=== PATIENT | female | born 1950 | race Caucasian/White ===

== ENCOUNTER 2017-05-21 14:03 | Emergency (ER) | payer MEDICARE, OTHER ==
--- NOTE | 2017-05-21 14:15 | EDM.PDOC ---
ED HPI GENERAL MEDICAL PROBLEM - General Chief Complaint: Diabetic Complaint Stated Complaint: SHAKY Time Seen by Provider: 05/21/17 14:04 Source of Information: Reports: Patient History Limitations: Reports: No Limitations - History of Present Illness INITIAL COMMENTS - FREE TEXT/NARRATIVE: History of present illness: []Patient started feeling right flank pain last night followed by lower pelvic pain urination that radiated to her right flank. She then noted her urine was pink. She denies any pain with urination, fevers, nausea, vomiting or diarrhea. Patient did receive some bad news earlier today regarding her brother who has multiple myeloma who is failing dialysis. Following that she had an episode of shaking and anxiety and did not feel well. Eyes any chest pain or shortness of breath. She is diabetic and her glucose shot to 200 or normal she is in the 120s. Review of systems: As per history of present illness and below otherwise all systems reviewed and negative. Past medical history: As per history of present illness and as reviewed below otherwise noncontributory. Surgical history: As per history of present illness and as reviewed below otherwise noncontributory. Social history: No reported history of drug or alcohol abuse. Family history: As per history of present illness and as reviewed below otherwise noncontributory. Physical exam: General: Well developed, well nourished in NAD HEENT: Atraumatic, normocephalic, pupils reactive, negative for conjunctival pallor or scleral icterus, mucous membranes moist, throat clear, neck supple, nontender, trachea midline. Lungs: Clear to auscultation, breath sounds equal bilaterally, chest nontender. Heart: S1S2, regular, negative for clicks, rubs, or JVD. Abdomen: Soft, nondistended, nontender. Negative for masses or hepatosplenomegaly. Right costovertebral tenderness. Pelvis: Stable nontender. Genitourinary: Deferred. Rectal: Deferred. Extremities: Atraumatic, negative for cords or calf pain. Neurovascular unremarkable. Neuro: Awake, alert, oriented. Cranial nerves II through XII unremarkable. Cerebellum unremarkable. Motor and sensory unremarkable throughout. Exam nonfocal. Diagnostics: []CBC normal white count with a shift, chemistries show BUN/creatinine are 20/ 1.2, urine shows small blood and CT abdomen and pelvis show 4.5 mm obstructing right ureteral stone at the UPJ. Therapeutics: []IV fluids and Flomax given Impression: []Ureterolithiasis with right 4.5 mm obstructing stone Plan: []Dr. Hardy was consulted and will see this patient in clinic tomorrow at 1:30 in his office. Patient is being discharged with tramadol and Flomax. He is told to return if symptoms worsen or change. Definitive disposition and diagnosis as appropriate pending reevaluation and review of above. Right Lower Back Pain Score (Numeric/FACES): 4 - Related Data Allergies Allergy/AdvReac Type Severity Reaction Status Date / Time prednisone Allergy Pain Verified 05/21/17 14:20 Home Meds: Home Meds Escitalopram [Lexapro] 10 mg PO DAILY 05/21/17 [History] Levothyroxine [Sythroid] 100 mcg PO DAILY 05/21/17 [History] Omeprazole Magnesium [Prilosec Otc] 20 mg PO DAILY 05/21/17 [History] Tamsulosin HCl [Flomax] 0.4 mg PO DAILY #14 cap.er.24h 05/21/17 [Rx] Valsartan/Hydrochlorothiazide [Valsartan-Hctz 80-12.5 mg Tab] 1 each PO DAILY [History] atorvaSTATin [Lipitor] 10 mg PO DAILY 05/21/17 [History] metFORMIN HCl [Metformin HCl] 500 mg PO BID 05/21/17 [History] traMADol HCl [Tramadol HCl] 50 mg PO Q6H PRN #16 tablet 05/21/17 [Rx] ED ROS GENERAL - Review of Systems Review Of Systems: See Below (See history of present illness) ED EXAM GENERAL NO PERIP PULSE - Physical Exam Exam: See Below (See history of present illness) Course - Vital Signs Last Recorded V/S: Last Vital Signs Temp 99.1 F 05/21/17 16:14 Pulse 110 H 05/21/17 14:10 Resp 16 05/21/17 14:10 BP 139/70 05/21/17 14:10 Pulse Ox 97 05/21/17 14:10 - Orders/Labs/Meds Orders: Active Orders 24 hr Category Date Time Status CULTURE BLOOD [BC] Stat Lab 05/21/17 14:50 Received CULTURE BLOOD [BC] Stat Lab 05/21/17 15:05 Received CULTURE URINE [RM] Stat Lab 05/21/17 14:40 Received Sodium Chloride 0.9% [Normal Saline] 500 ml Med 05/21/17 15:15 Active IV .BOLUS Sodium Chloride 0.9% [Saline Flush] Med 05/21/17 14:40 Active 10 ml FLUSH ASDIRECTED PRN Sodium Chloride 0.9% [Saline Flush] Med 05/21/17 14:40 Active 2.5 ml FLUSH ASDIRECTED PRN Blood Culture x2 Reflex Set [OM.PC] Stat Oth 05/21/17 14:40 Ordered Saline Lock Insert [OM.PC] Stat Oth 05/21/17 14:40 Ordered Medication Orders Sodium Chloride (Normal Saline) 500 mls @ 999 mls/hr IV .BOLUS GILBERT Last Admin: 05/21/17 15:14 Dose: 999 mls/hr Sodium Chloride (Saline Flush) 10 ml FLUSH ASDIRECTED PRN PRN Reason: Keep Vein Open Sodium Chloride (Saline Flush) 2.5 ml FLUSH ASDIRECTED PRN PRN Reason: Keep Vein Open Labs: Laboratory Tests 05/21/17 05/21/17 05/21/17 Range/Units 14:43 14:50 14:50 WBC 3.37 L (4.0-11.0) K/uL RBC 4.41 (4.30-5.90) M/uL Hgb 13.5 (12.0-16.0) g/dL Hct 40.2 (36.0-46.0) % MCV 91.2 (80.0-98.0) fL MCH 30.6 (27.0-32.0) pg MCHC 33.6 (31.0-37.0) g/dL RDW Std Deviation 46.6 (28.0-62.0) fl RDW Coeff of Mya 14 (11.0-15.0) % Plt Count 190 (150-400) K/uL MPV 10.30 (7.40-12.00) fL Neut % (Auto) 88.7 H (48.0-80.0) % Lymph % (Auto) 9.5 L (16.0-40.0) % Bowie % (Auto) 0.3 (0.0-15.0) % Eos % (Auto) 1.2 (0.0-7.0) % Baso % (Auto) 0.3 (0.0-1.5) % Neut # (Auto) 3.0 (1.4-5.7) K/uL Lymph # (Auto) 0.3 L (0.6-2.4) K/uL Bowie # (Auto) 0.0 (0.0-0.8) K/uL Eos # (Auto) 0.0 (0.0-0.7) K/uL Baso # (Auto) 0.0 (0.0-0.1) K/uL Nucleated RBC % 0.0 /100WBC Nucleated RBCs # 0 K/uL Lactate (0.20-2.00) mmol/L Sodium 139 (136-145) mmol/L Potassium 3.4 L (3.5-5.1) mmol/L Chloride 102 (98-107) mmol/L Carbon Dioxide 23.7 (21.0-32.0) mmol/L BUN 20 H (7.0-18.0) mg/dL Creatinine 1.2 H (0.6-1.0) mg/dL Est Cr Clr Drug Dosing 43.75 mL/min Estimated GFR (MDRD) 45.1 ml/min Glucose 117 H (74-106) mg/dL Calcium 9.4 (8.5-10.1) mg/dL Total Bilirubin 1.1 H (0.2-1.0) mg/dL AST 22 (15-37) U/L ALT 26 (14-63) U/L Alkaline Phosphatase 102 (46-116) U/L Total Protein 7.7 (6.4-8.2) g/dL Albumin 4.5 (3.4-5.0) g/dL Globulin 3.2 (2.0-3.5) g/dL Albumin/Globulin Ratio 1.4 (1.3-2.8) Urine Color YELLOW Urine Appearance CLEAR Urine pH 5.5 (5.0-8.0) Ur Specific [place] 1.025 (1.001-1.035) Urine Protein NEGATIVE (NEGATIVE) mg/dL Urine Glucose (UA) NEGATIVE (NEGATIVE) mg/dL Urine Ketones TRACE H (NEGATIVE) mg/dL Urine Occult Blood TRACE-INTACT (NEGATIVE) Urine Nitrite NEGATIVE (NEGATIVE) Urine Bilirubin NEGATIVE (NEGATIVE) Urine Urobilinogen 0.2 (<2.0) EU/dL Ur Leukocyte Esterase TRACE (NEGATIVE) Urine RBC 0-1 (0-2/HPF) Urine WBC 2-5 (0-5/HPF) Ur Epithelial Cells OCCASIONAL (NONE-FEW) Urine Bacteria FEW (NEGATIVE) Urine Mucus LIGHT (NONE-MOD) 05/21/17 Range/Units 14:50 WBC (4.0-11.0) K/uL RBC (4.30-5.90) M/uL Hgb (12.0-16.0) g/dL Hct (36.0-46.0) % MCV (80.0-98.0) fL MCH (27.0-32.0) pg MCHC (31.0-37.0) g/dL RDW Std Deviation (28.0-62.0) fl RDW Coeff of Mya (11.0-15.0) % Plt Count (150-400) K/uL MPV (7.40-12.00) fL Neut % (Auto) (48.0-80.0) % Lymph % (Auto) (16.0-40.0) % Bowie % (Auto) (0.0-15.0) % Eos % (Auto) (0.0-7.0) % Baso % (Auto) (0.0-1.5) % Neut # (Auto) (1.4-5.7) K/uL Lymph # (Auto) (0.6-2.4) K/uL Bowie # (Auto) (0.0-0.8) K/uL Eos # (Auto) (0.0-0.7) K/uL Baso # (Auto) (0.0-0.1) K/uL Nucleated RBC % /100WBC Nucleated RBCs # K/uL Lactate 2.5 H (0.20-2.00) mmol/L Sodium (136-145) mmol/L Potassium (3.5-5.1) mmol/L Chloride (98-107) mmol/L Carbon Dioxide (21.0-32.0) mmol/L BUN (7.0-18.0) mg/dL Creatinine (0.6-1.0) mg/dL Est Cr Clr Drug Dosing mL/min Estimated GFR (MDRD) ml/min Glucose (74-106) mg/dL Calcium (8.5-10.1) mg/dL Total Bilirubin (0.2-1.0) mg/dL AST (15-37) U/L ALT (14-63) U/L Alkaline Phosphatase (46-116) U/L Total Protein (6.4-8.2) g/dL Albumin (3.4-5.0) g/dL Globulin (2.0-3.5) g/dL Albumin/Globulin Ratio (1.3-2.8) Urine Color Urine Appearance Urine pH (5.0-8.0) Ur Specific [place] (1.001-1.035) Urine Protein (NEGATIVE) mg/dL Urine Glucose (UA) (NEGATIVE) mg/dL Urine Ketones (NEGATIVE) mg/dL Urine Occult Blood (NEGATIVE) Urine Nitrite (NEGATIVE) Urine Bilirubin (NEGATIVE) Urine Urobilinogen (<2.0) EU/dL Ur Leukocyte Esterase (NEGATIVE) Urine RBC (0-2/HPF) Urine WBC (0-5/HPF) Ur Epithelial Cells (NONE-FEW) Urine Bacteria (NEGATIVE) Urine Mucus (NONE-MOD) Meds: Medications Generic Name Dose Route Start Last Admin Trade Name Suzette PRN Reason Stop Dose Admin Sodium Chloride 500 mls @ 999 mls/hr 05/21/17 15:15 05/21/17 15:14 Normal Saline IV 999 mls/hr .BOLUS GILBERT Administration Sodium Chloride 10 ml 05/21/17 14:40 Saline Flush FLUSH ASDIRECTED PRN Keep Vein Open Sodium Chloride 2.5 ml 05/21/17 14:40 Saline Flush FLUSH ASDIRECTED PRN Keep Vein Open Discontinued Medications Generic Name Dose Route Start Last Admin Trade Name Suzette PRN Reason Stop Dose Admin Acetaminophen 325 mg 05/21/17 14:41 05/21/17 15:00 Tylenol PO 05/21/17 14:42 325 mg NOW ONE Administration Sodium Chloride 500 mls @ 999 mls/hr 05/21/17 15:09 Normal Saline IV 05/21/17 15:39 .Bolus ONE Ondansetron HCl 4 mg 05/21/17 15:28 05/21/17 15:33 Zofran IVPUSH 05/21/17 15:29 4 mg ONETIME ONE Administration Tamsulosin HCl 0.4 mg 05/21/17 16:39 Flomax PO 05/21/17 16:40 ONETIME ONE Departure - Departure Time of Disposition: 16:43 Disposition: Home, Self-Care 01 Condition: Good Clinical Impression: Ureterolithiasis - Discharge Information Prescriptions: Tamsulosin HCl [Flomax] 0.4 mg PO DAILY #14 cap.er.24h traMADol HCl [Tramadol HCl] 50 mg PO Q6H PRN #16 tablet PRN Reason: Pain Referrals: Inga Fraser MD [Primary Care Provider] - Jono Hardy MD [Physician] - (Your appointment is Tomorrow in clinic at 1: 30.) Forms: ED Department Discharge Additional Instructions: The following information is given to patients seen in the emergency department who are being discharged to home. This information is to outline your options for follow-up care. We provide all patients seen in our emergency department with a follow-up referral. The need for follow-up, as well as the timing and circumstances, are variable depending upon the specifics of your emergency department visit. If you don't have a primary care physician on staff, we will provide you with a referral. We always advise you to contact your personal physician following an emergency department visit to inform them of the circumstance of the visit and for follow-up with them and/or the need for any referrals to a consulting specialist. The emergency department will also refer you to a specialist when appropriate. This referral assures that you have the opportunity for follow-up care with a specialist. All of these measure are taken in an effort to provide you with optimal care, which includes your follow-up. Under all circumstances we always encourage you to contact your private physician who remains a resource for coordinating your care. When calling for follow-up care, please make the office aware that this follow-up is from your recent emergency room visit. If for any reason you are refused follow-up, please contact the [facility] Emergency Department at and asked to speak to the emergency department charge nurse. Tramadol for pain take Flomax as directed increase fluids follow-up with Dr. Hardy tomorrow at 1:30 PM - My Orders Last 24 Hours: My Active Orders 05/21/17 14:40 CULTURE URINE [RM] Stat Sodium Chloride 0.9% [Saline Flush] 10 ml FLUSH ASDIRECTED PRN Sodium Chloride 0.9% [Saline Flush] 2.5 ml FLUSH ASDIRECTED PRN Blood Culture x2 Reflex Set [OM.PC] Stat Saline Lock Insert [OM.PC] Stat 05/21/17 14:50 CULTURE BLOOD [BC] Stat 05/21/17 15:05 CULTURE BLOOD [BC] Stat 05/21/17 15:15 Sodium Chloride 0.9% [Normal Saline] 500 ml IV .BOLUS - Assessment/Plan Last 24 Hours: My Active Orders 05/21/17 14:40 CULTURE URINE [RM] Stat Sodium Chloride 0.9% [Saline Flush] 10 ml FLUSH ASDIRECTED PRN Sodium Chloride 0.9% [Saline Flush] 2.5 ml FLUSH ASDIRECTED PRN Blood Culture x2 Reflex Set [OM.PC] Stat Saline Lock Insert [OM.PC] Stat 05/21/17 14:50 CULTURE BLOOD [BC] Stat 05/21/17 15:05 CULTURE BLOOD [BC] Stat 05/21/17 15:15 Sodium Chloride 0.9% [Normal Saline] 500 ml IV .BOLUS
[2017-05-21] MEDS ORDERED: Sodium Chloride 0.9% 10 ML Syringe FLUSH PRN (14:40)
[2017-05-21] MEDS ORDERED: Sodium Chloride 0.9% 2.5 ML Syringe FLUSH PRN (14:40)
[2017-05-21] MEDS ORDERED: Acetaminophen 325 MG Tab PO ONE (14:41)
[2017-05-21] MEDS ORDERED: Sodium Chloride 0.9% 500 ML IV ONE (15:09)
[2017-05-21] MEDS ORDERED: Sodium Chloride 0.9% 500 ML IV SCH (15:15)
[2017-05-21] MEDS ORDERED: Ondansetron 4 MG/2 ML SDV IVPUSH ONE (15:28)
--- NOTE | 2017-05-21 15:48 | CR ---
EXAMINATION: Portable chest radiograph. HISTORY: Shortness of breath. FINDINGS: The trachea is midline. The heart is borderline in size given the technique. The cardiomediastinal si lhouette is within normal limits. No pulmonary infiltrates, effusions or pneumothorax. Probable hiata l hernia. Osseous structures appear unremarkable. IMPRESSION: 1. Borderline cardiomegaly otherwise no acute cardiopulmonary findings.
--- NOTE | 2017-05-21 16:30 | CT ---
CT of the abdomen and pelvis without contrast. HISTORY: Pain TECHNIQUE: Axial CT images were obtained of the abdomen and pelvis without contrast. Coronal and sagi ttal reconstructions obtained. FINDINGS: The lung bases are clear, no pleural effusion. There is a moderate hiatal hernia. The liver, spleen, adrenal glands, and pancreas appear unremarkable for noncontrast examination. Mult iple cholelithiasis without evidence of cholecystitis. There is no bulky retroperitoneal lymphadenopa thy. No abdominal ascites. There is a 4.5 mm obstructing stone at the right ureteropelvic junction nonobstructing renal calculi noted. Renal cortical cysts are also noted. The large and small bowel are normal in caliber without evidence of obstruction. The appendix appears normal. There is no bulky pelvic lymphadenopathy. No free fluid. No free air. The urinary bladder ap pears normal. Tiny fat-containing umbilical hernia. The visualized osseous structures appear normal. IMPRESSION: 1. There is a 4.5 mm obstructing stone at the right ureteropelvic junction with mild proximal hydrone phrosis and perirenal stranding. 2. Nonobstructing renal calculi also noted bilaterally. 3. Cholelithiasis without evidence of cholecystitis. 4. Renal cortical cysts also noted. 5. Moderate hiatal hernia.
[2017-05-21] MEDS ORDERED: Tamsulosin 0.4 MG Cap.ER PO ONE (16:39)
== END 2017-05-21 16:53 | disposition home or self-care (01) ==
LOC: MW.ED 14:03
DX: N20.1 Calculus of ureter (principal); Z88.8 Allergy status to other drugs, medicaments and biological substances; Z79.899 Other long term (current) drug therapy; Z79.84 Long term (current) use of oral hypoglycemic drugs
CPT/HCPCS: 36415; 71045; 74176; 80053; 81001; 82962; 83605; 85025; 87040; 87086; 96361; 96374; 99284; A9270; J2405; J7040; 87088; 87186

== ENCOUNTER 2017-05-22 12:11 | Emergency (ER) | payer MEDICARE, OTHER ==
[~2017-05-22 12:11] MED LIST: Ondansetron 4 MG/2 ML SDV IVPUSH ONE; Sodium Chloride 0.9% 1,000 ML IV ONE; Sodium Chloride 0.9% 10 ML Syringe FLUSH PRN; Sodium Chloride 0.9% 2.5 ML Syringe FLUSH PRN
[2017-05-22] MEDS ORDERED: Piperacillin/Tazobactam 3.375 GM in Sodium Chloride 0.9% 50 ML IV ONE (12:15)
--- NOTE | 2017-05-22 12:21 | EDM.PDOC ---
ED HPI GENERAL MEDICAL PROBLEM - General Chief Complaint: Possible Sepsis Stated Complaint: UNK Time Seen by Provider: 05/22/17 12:11 Source of Information: Reports: Patient History Limitations: Reports: No Limitations - History of Present Illness INITIAL COMMENTS - FREE TEXT/NARRATIVE: History of present illness: []Patient was seen yesterday for flank and bladder pain with chills and diagnosed with kidney stone. She was to see Dr. Hardy today, but he had to leave his office due to an illness. I called this patient this morning with a positive blood culture result and arranged to have IV infusion antibiotics before her appointment with Dr. Hardy. She had difficulty leaving the house this morning due to vomiting and 3 episodes of nonbloody diarrhea. When she arrived at infusion services for the antibiotics she was found to be diaphoretic and was sent back to the emergency room. Review of systems: As per history of present illness and below otherwise all systems reviewed and negative. Past medical history: As per history of present illness and as reviewed below otherwise noncontributory. Surgical history: As per history of present illness and as reviewed below otherwise noncontributory. Social history: No reported history of drug or alcohol abuse. Family history: As per history of present illness and as reviewed below otherwise noncontributory. Physical exam: General: Well developed, well nourished in NAD, diaphoretic HEENT: Atraumatic, normocephalic, pupils reactive, negative for conjunctival pallor or scleral icterus, mucous membranes moist, throat clear, neck supple, nontender, trachea midline. Lungs: Clear to auscultation, breath sounds equal bilaterally, chest nontender. Heart: S1S2, regular, negative for clicks, rubs, or JVD. Abdomen: Soft, nondistended, mild diffuse tenderness without rebound or guarding. Negative for masses or hepatosplenomegaly. Negative for costovertebral tenderness. Pelvis: Stable nontender. Genitourinary: Deferred. Rectal: Deferred. Extremities: Atraumatic, negative for cords or calf pain. Neurovascular unremarkable. Neuro: Awake, alert, oriented. Cranial nerves II through XII unremarkable. Cerebellum unremarkable. Motor and sensory unremarkable throughout. Exam nonfocal. Diagnostics: []Blood cultures drawn yesterday resulted today as negative rods. Therapeutics: []IV fluids and Zosyn given, patient arrived hypotensive and after 2 L NS was 90/50 and dopamine was then started prior to EMS transport to [place]. Impression: []Gram-negative sepsis, obstructing right distal ureteral stone UPJ. Plan: []Consulted with Dr. Garcia and would like this patient transferred because urology is unavailable. Dr. Kingsley at [facility] excepts the patient. Definitive disposition and diagnosis as appropriate pending reevaluation and review of above. abdominal Pain Score (Numeric/FACES): 5 - Related Data Allergies Allergy/AdvReac Type Severity Reaction Status Date / Time prednisone Allergy Pain Verified 05/22/17 12:11 Home Meds: Home Meds Escitalopram [Lexapro] 10 mg PO DAILY 05/21/17 [History] Levothyroxine [Sythroid] 100 mcg PO DAILY 05/21/17 [History] Omeprazole Magnesium [Prilosec Otc] 20 mg PO DAILY 05/21/17 [History] Tamsulosin HCl [Flomax] 0.4 mg PO DAILY #14 cap.er.24h 05/21/17 [Rx] Valsartan/Hydrochlorothiazide [Valsartan-Hctz 80-12.5 mg Tab] 1 each PO DAILY [History] atorvaSTATin [Lipitor] 10 mg PO DAILY 05/21/17 [History] metFORMIN HCl [Metformin HCl] 500 mg PO BID 05/21/17 [History] traMADol HCl [Tramadol HCl] 50 mg PO Q6H PRN #16 tablet 05/21/17 [Rx] Levofloxacin [Levaquin] 500 mg PO DAILY #10 tab 05/22/17 [Rx] Past Medical History Cardiovascular History: Reports: Hypertension 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 (See Below) Other OB/BYN History: pt states she has had Right ovarian cyst removed, bilateral cyst removal from breasts, and bilateral breast reduction Endocrine/Metabolic History: Reports: Diabetes, Type II, Hypothyroidism - Infectious Disease History Infectious Disease History: Reports: Chicken Pox, Measles Social & Family History - Family History Family Medical History: Noncontributory - Tobacco Use Smoking Status *Q: Never Smoker - Caffeine Use Caffeine Use: Reports: Tea - Recreational Drug Use Recreational Drug Use: No ED ROS GENERAL - Review of Systems Review Of Systems: See Below (See history of present illness) ED EXAM, GI/ABD - Physical Exam Exam: See Below (See history of present illness) Course - Vital Signs Last Recorded V/S: Last Vital Signs Temp 90.2 F L 05/22/17 12:12 Pulse 71 05/22/17 13:14 Resp 20 05/22/17 13:14 BP 87/35 L 05/22/17 13:14 Pulse Ox 97 05/22/17 13:14 - Orders/Labs/Meds Orders: Active Orders 24 hr Category Date Time Status CULTURE STOOL + CAMPY+SHIGATOX [RM] Stat Lab 05/22/17 12:41 Ordered Clostridium Difficile [CDIFF TOX A+B] [OP] Stat Lab 05/22/17 12:41 Ordered DOPamine 400 mg Med 05/22/17 13:49 Active Dextrose 5% in Water 240 ml IV TITRATE Sodium Chloride 0.9% [Normal Saline] 1,000 ml Med 05/22/17 13:17 Active IV .BOLUS Sodium Chloride 0.9% [Saline Flush] Med 05/22/17 12:11 Active 10 ml FLUSH ASDIRECTED PRN Sodium Chloride 0.9% [Saline Flush] Med 05/22/17 12:11 Active 2.5 ml FLUSH ASDIRECTED PRN Saline Lock Insert [OM.PC] Stat Oth 05/22/17 12:11 Ordered Medication Orders Sodium Chloride (Normal Saline) 1,000 mls @ 999 mls/hr IV .BOLUS ONE Stop: 05/22/17 14:17 Last Admin: 05/22/17 13:18 Dose: 999 mls/hr Dopamine HCl 400 mg/ Dextrose/ (Water) 250 mls @ 16.49 mls/hr IV TITRATE GILBERT; 5 MCG/KG/MIN PRN Reason: Protocol Sodium Chloride (Saline Flush) 10 ml FLUSH ASDIRECTED PRN PRN Reason: Keep Vein Open Sodium Chloride (Saline Flush) 2.5 ml FLUSH ASDIRECTED PRN PRN Reason: Keep Vein Open Labs: Laboratory Tests 05/22/17 05/22/17 05/22/17 Range/Units 12:14 12:14 12:14 WBC 15.86 H (4.0-11.0) K/uL RBC 3.71 L (4.30-5.90) M/uL Hgb 11.4 L (12.0-16.0) g/dL Hct 34.2 L (36.0-46.0) % MCV 92.2 (80.0-98.0) fL MCH 30.7 (27.0-32.0) pg MCHC 33.3 (31.0-37.0) g/dL RDW Std Deviation 49.3 (28.0-62.0) fl RDW Coeff of Mya 15 (11.0-15.0) % Plt Count 128 L (150-400) K/uL MPV 10.90 (7.40-12.00) fL Add Manual Diff YES Neutrophils % (Manual) 67 (48.0-80.0) % Band Neutrophils % 21 % Lymphocytes % (Manual) 8 L (16.0-40.0) % Monocytes % (Manual) 1 (0.0-15.0) % Eosinophils % (Manual) 1 (0.0-7.0) % Metamyelocytes % 2 % Nucleated RBC % 0.0 /100WBC Absolute Seg Neuts 10.6 H (1.4-5.7) Band Neutrophils # 3.3 Lymphocytes # (Manual) 1.3 (0.6-2.4) Monocytes # (Manual) 0.2 (0.0-0.8) Eosinophils # (Manual) 0.2 (0.0-0.7) Absolute Metamyelocyte 0.3 Nucleated RBCs # 0 K/uL Lactate 7.9 H (0.20-2.00) mmol/L Sodium 134 L (136-145) mmol/L Potassium 3.7 (3.5-5.1) mmol/L Chloride 97 L (98-107) mmol/L Carbon Dioxide 15.4 L (21.0-32.0) mmol/L BUN 31 H (7.0-18.0) mg/dL Creatinine 2.5 H (0.6-1.0) mg/dL Est Cr Clr Drug Dosing 21.00 mL/min Estimated GFR (MDRD) 19.3 ml/min Glucose 119 H (74-106) mg/dL Calcium 8.3 L (8.5-10.1) mg/dL Total Bilirubin 1.0 (0.2-1.0) mg/dL AST 27 (15-37) IU/L ALT 24 (14-63) IU/L Alkaline Phosphatase 70 (46-116) U/L Total Protein 6.4 (6.4-8.2) g/dL Albumin 3.3 L (3.4-5.0) g/dL Globulin 3.1 (2.0-3.5) g/dL Albumin/Globulin Ratio 1.1 L (1.3-2.8) Meds: Medications Generic Name Dose Route Start Last Admin Trade Name Suzette PRN Reason Stop Dose Admin Sodium Chloride 1,000 mls @ 999 mls/hr 05/22/17 13:17 05/22/17 13:18 Normal Saline IV 05/22/17 14:17 999 mls/hr .BOLUS ONE Administration Dopamine HCl 400 mg/ Dextrose/ 250 mls @ 16.49 mls/hr 05/22/17 13:49 Water IV TITRATE GILBERT Protocol 5 MCG/KG/MIN Sodium Chloride 10 ml 05/22/17 12:11 Saline Flush FLUSH ASDIRECTED PRN Keep Vein Open Sodium Chloride 2.5 ml 05/22/17 12:11 Saline Flush FLUSH ASDIRECTED PRN Keep Vein Open Discontinued Medications Generic Name Dose Route Start Last Admin Trade Name Suzette PRN Reason Stop Dose Admin Sodium Chloride 1,000 mls @ 999 mls/hr 05/22/17 12:11 05/22/17 12:50 Normal Saline IV 05/22/17 13:11 999 mls/hr .Bolus ONE Infusion Piperacillin Sod/Tazobactam 50 mls @ 100 mls/hr 05/22/17 12:15 05/22/17 12:25 Sod 3.375 gm/ Sodium Chloride IV 05/22/17 12:44 100 mls/hr ONETIME ONE Administration Dopamine HCl 400 mg/ Dextrose/ 260 mls @ 17.15 mls/hr 05/22/17 13:45 13:57 Water IV 5 mcg/kg/min TITRATE GILBERT 17.15 mls/hr Protocol Administration 5 MCG/KG/MIN Ondansetron HCl 4 mg 05/22/17 12:11 05/22/17 12:26 Zofran IVPUSH 05/22/17 12:12 4 mg ONETIME ONE Administration - Re-Assessments/Exams Free Text/Narrative Re-Assessment/Exam: Patient arrived hypotensive and was started on IV fluids and Zosyn was started. After 2 L of fluid patient was started on dopamine for pressures of 90/50. Dr. Garcia prefers this patient to be admitted to [facility]. Dr. Kingsley accepts this patient and patient will be going through the ER. 05/22/17 14:11 Departure - Departure Time of Disposition: 14:14 Disposition: DC/Tfer to Acute Hospital 02 Condition: Fair, Serious Clinical Impression: Gram negative sepsis - Discharge Information Referrals: PCP,Unknown [Primary Care Provider] - Forms: ED Department Discharge - My Orders Last 24 Hours: My Active Orders 05/22/17 12:11 Sodium Chloride 0.9% [Saline Flush] 10 ml FLUSH ASDIRECTED PRN Sodium Chloride 0.9% [Saline Flush] 2.5 ml FLUSH ASDIRECTED PRN Saline Lock Insert [OM.PC] Stat 05/22/17 12:41 CULTURE STOOL + CAMPY+SHIGATOX [RM] Stat Clostridium Difficile [CDIFF TOX A+B] [OP] Stat 05/22/17 13:17 Sodium Chloride 0.9% [Normal Saline] 1,000 ml IV .BOLUS 05/22/17 13:49 DOPamine 400 mg Dextrose 5% in Water 240 ml IV TITRATE - Assessment/Plan Last 24 Hours: My Active Orders 05/22/17 12:11 Sodium Chloride 0.9% [Saline Flush] 10 ml FLUSH ASDIRECTED PRN Sodium Chloride 0.9% [Saline Flush] 2.5 ml FLUSH ASDIRECTED PRN Saline Lock Insert [OM.PC] Stat 05/22/17 12:41 CULTURE STOOL + CAMPY+SHIGATOX [RM] Stat Clostridium Difficile [CDIFF TOX A+B] [OP] Stat 05/22/17 13:17 Sodium Chloride 0.9% [Normal Saline] 1,000 ml IV .BOLUS 05/22/17 13:49 DOPamine 400 mg Dextrose 5% in Water 240 ml IV TITRATE
[2017-05-22] MEDS ORDERED: Sodium Chloride 0.9% 1,000 ML IV ONE ×2 (13:17→13:45)
[2017-05-22] MEDS ORDERED: DEXTROSE 5% IV SCH ×2 (13:49)
[2017-05-22] MEDS ORDERED: DOPAMINE IV SCH ×2 (13:49)
[2017-05-22] MEDS ORDERED: WATER IV SCH ×2 (13:49)
== END 2017-05-22 14:15 ==
LOC: MW.ED 12:11
DX: A41.50 Gram-negative sepsis, unspecified (principal); I10 Essential (primary) hypertension; E11.9 Type 2 diabetes mellitus without complications; E03.9 Hypothyroidism, unspecified; Z88.8 Allergy status to other drugs, medicaments and biological substances; Z79.899 Other long term (current) drug therapy; Z79.84 Long term (current) use of oral hypoglycemic drugs
CPT/HCPCS: 36415; 80053; 83605; 85025; 96361; 96365; 96367; 96374; 99285; J1265; J2405; J2543; J7040; J7050; J7060; 99284

== ENCOUNTER 2023-11-25 07:18 | Day surgery (SDC) | payer MEDICARE, OTHER ==
[~2023-11-25 07:18] MED LIST changes: -Ondansetron 4 MG/2 ML SDV IVPUSH ONE; -Sodium Chloride 0.9% 1,000 ML IV ONE; +Sodium Chloride 0.9% 20 ML SDV IV PRN
[2023-11-25] MEDS: Lactated Ringers 1,000 ML IV SCH (07:48)
[2023-11-25] MEDS ORDERED: Scopalamine 1mg/3day Transdermal Patch ONE (08:50)
[2023-11-25] MEDS: Scopalamine 1mg/3day Transdermal Patch TRDERM PRN (09:05)
[2023-11-25] MEDS ORDERED: Lidocaine 2% 5 ML SDV ONE (09:08)
[2023-11-25] MEDS ORDERED: Propofol 200 MG/20 ML SDV ONE ×2 (09:08)
[2023-11-25] MEDS ORDERED: Ondansetron 4 MG/2 ML SDV ONE (09:36)
== END 2023-11-25 10:29 | disposition home or self-care (01) ==
LOC: MW.SDS 07:18
PROVIDERS: ATTEND Surgery
DX: Z12.11 Encounter for screening for malignant neoplasm of colon (principal); D12.3 Benign neoplasm of transverse colon; D12.5 Benign neoplasm of sigmoid colon; K57.30 Diverticulosis of large intestine without perforation or abscess without bleeding; D64.9 Anemia, unspecified; K21.9 Gastro-esophageal reflux disease without esophagitis; I10 Essential (primary) hypertension; E11.9 Type 2 diabetes mellitus without complications; E66.9 Obesity, unspecified; E03.9 Hypothyroidism, unspecified; Z79.890 Hormone replacement therapy; Z79.84 Long term (current) use of oral hypoglycemic drugs; Z79.899 Other long term (current) drug therapy; Z68.30 Body mass index [BMI] 30.0-30.9, adult; Z88.8 Allergy status to other drugs, medicaments and biological substances; Z86.010 Personal history of colon polyps
CPT/HCPCS: 45380; 88305; A9270; J2405; J2704; J7120; 00811; 99100; J3490